=== PATIENT | male | born 1955 | race Caucasian/White ===

== ENCOUNTER 2018-03-08 21:11 | Inpatient (IN) ==
[2018-03-08] MEDS ORDERED: Enoxaparin Inj 60 MG/0.6 ML Syringe SQ ONE (21:31)
--- NOTE | 2018-03-08 21:36 | ED ---
HPI General Chief Complaint: Arrhythmia / Palpitations Stated Complaint: Irregular heartbeat Time Seen by Provider: 03/08/18 21:30 Source: patient Mode of arrival: ambulatory Limitations: no limitations History of Present Illness MD complaint: Reports "heart racing", palpitations and irregular heart beat Duration: intermittent Context: Reports occurred during rest Associated symptoms: Reports denies other symptoms Related Data Home Medications Medication Instructions Recorded Confirmed No Known Home Medications 03/08/18 03/08/18 Allergies Allergy/AdvReac Type Severity Reaction Status Date / Time Tetanus Vaccines and Toxoid Allergy unknown Verified 03/08/18 21:25 Review of Systems ROS: all other systems reviewed are negative PMFSH History History Provided By: Patient Medical History Medical History Patient denies medical problems (Acute) Surgical History Surgical History No history of previous surgery (Acute) Social History Social History Substance History: No History of Abuse Second Hand Smoke Exposure: No Smoking Status: Never smoker How Often Do You Have a Drink Containing Alcohol: 4 or more times a week Recent Travel in [place] within the Last 8 Weeks: No Recent Out of Country Travel within the Last 8 Weeks: No Immunization History Tetanus Immunization: >5 Years Exam Narrative Exam Narrative: GENERAL: Elderly male in no acute distress SKIN: Warm and dry. HEAD: Atraumatic. Normocephalic. EYES: Pupils equal and round. No scleral icterus. No injection or drainage. ENT: No nasal bleeding or discharge. Mucous membranes pink and moist. NECK: Trachea midline. No JVD. CARDIOVASCULAR: Tachycardic rate and irregularly irregular rhythm RESPIRATORY: No accessory muscle use. Clear to auscultation. Breath sounds equal bilaterally. GASTROINTESTINAL: Abdomen soft, non-tender, nondistended. No rebound or guarding MUSCULOSKELETAL: Extremities without clubbing, cyanosis, or edema. No obvious deformities. NEUROLOGICAL: Awake and alert. No obvious cranial nerve deficits. Motor grossly within normal limits. Five out of 5 muscle strength in the arms and legs. Normal speech. PSYCHIATRIC: Appropriate mood and affect; insight and judgment normal. Course Initial Documented Vital Signs Temperature 97.5 F L 03/08/18 21:13 Pulse Rate 101 H 03/08/18 21:13 Respiratory Rate 20 03/08/18 21:13 Blood Pressure 168/66 H 03/08/18 21:13 Pulse Oximetry 97 03/08/18 21:13 Last Documented Vital Signs Temperature 97.5 F L 03/08/18 21:13 Pulse Rate 101 H 03/08/18 21:13 Respiratory Rate 20 03/08/18 21:13 Blood Pressure 168/66 H 03/08/18 21:13 Pulse Oximetry 97 03/08/18 21:13 Medical Decision Making MDM Narrative Medical decision making narrative: No leukocytosis, no anemia, normal platelet count, no left shift Coagulation profile is within normal limits First set of cardiac enzymes negative All electrolytes within normal limits Normal kidney liver and pancreatic functions. Chest x-ray shows by apical pleural and parenchymal scarring with upward hilar retraction. Medical Screen Exam Complete: Yes Emergency Medical Condition: Yes Lab Data Result diagrams: 03/08/18 21:30 03/08/18 21:30 Lab Results 03/08/18 03/08/18 03/08/18 Range/Units 21:30 21:30 21:30 CBC w Diff Auto diff final WBC 4.3 (4.0-11.0) th/mm3 RBC 4.40 L (4.50-5.90) mil/mm3 Hgb 14.8 (13.0-17.0) gm/dL Hct 42.8 (39.0-51.0) % MCV 97.4 (80.0-100.0) fL MCH 33.6 (27.0-34.0) pg MCHC 34.5 (32.0-36.0) % RDW 11.7 (11.6-17.2) % Plt Count 231 (150-450) th/mm3 MPV 7.8 (7.0-11.0) fL Neut % (Auto) 47.2 (16.0-70.0) % Lymph % (Auto) 38.4 (9.0-44.0) % Pierce % (Auto) 7.4 (0.0-8.0) % Eos % (Auto) 4.6 H (0.0-4.0) % Baso % (Auto) 2.4 H (0.0-2.0) % Neut # (Auto) 2.0 (1.8-7.7) th/mm3 Lymph # (Auto) 1.7 (1.0-4.8) th/mm3 Pierce # (Auto) 0.3 (0.0-0.9) th/mm3 Eos # (Auto) 0.2 (0.0-0.4) th/mm3 Baso # (Auto) 0.1 (0.0-0.2) th/mm3 WBC Differential . Differential Comment . PT 10.7 (9.8-11.6) sec INR 1.1 Ratio APTT 24.4 (24.3-30.1) sec Sodium 141 (136-145) meq/L Potassium 3.8 (3.5-5.1) meq/L Chloride 106 (98-107) meq/L Carbon Dioxide 28.2 (21.0-32.0) meq/L Anion Gap 7 (5-15) meq/L BUN 19 H (7-18) mg/dL Creatinine 0.91 (0.60-1.30) mg/dL Estimated GFR 84 L (>89) mL/min Random Glucose 92 (74-106) mg/dL Calcium 8.9 (8.5-10.1) mg/dL Total Bilirubin 0.5 (0.2-1.0) mg/dL AST 26 (15-37) U/L ALT 28 (12-78) U/L Alkaline Phosphatase 61 (45-117) U/L Total Creatine Kinase 148 (39-308) U/L Troponin I Less than 0.02 L (0.02-0.05) ng/mL Total Protein 7.6 (6.4-8.2) g/dL Albumin 3.8 (3.4-5.0) g/dL Imaging Data Attestation: I personally reviewed and interpreted this imaging study as follows : ECG Data EKG Prior to Arrival: No Attestation: I personally reviewed and interpreted this ECG as follows: Prior ECG tracings: not available for review Interpretation: EKG shows tachycardia, rhythm of atrial fibrillation with RVR at 140, no evidence of any acute ST elevation IL pattern noted. However the patient does show relatively diffuse minimal ST depressions throughout all leads except for V1 V2 1 2 and aVL Discharge Plan Discharge Disposition Patient Disposition: 30 Still Patient Discharge Condition Condition: Stable Discharge Details Diagnosis: Atrial fibrillation, new onset Physicians Team ED Provider: Mychal Montoya Primary Care Provider: Erica Gutierrez Rxs /Orders / Referrals /Forms Prescriptions: No Action No Known Home Medications RF: 0 Status ED Status: With Doctor
[2018-03-08 21:46] LABS: Baso # (Auto) 0.1 th/mm3 (0.0-0.2); Baso % (Auto) 2.4 % (0.0-2.0); Eos # (Auto) 0.2 th/mm3 (0.0-0.4); Eos % (Auto) 4.6 % (0.0-4.0); Hematocrit 42.8 % (39.0-51.0); Hemoglobin 14.8 gm/dL (13.0-17.0); Lymph # (Auto) 1.7 th/mm3 (1.0-4.8); Lymph % (Auto) 38.4 % (9.0-44.0); Mean Corpuscular HGB Conc 34.5 % (32.0-36.0); Mean Corpuscular Hemoglobin 33.6 pg (27.0-34.0); Mean Corpuscular Volume 97.4 fL (80.0-100.0); Mean Platelet Volume 7.8 fL (7.0-11.0); Mono # (Auto) 0.3 th/mm3 (0.0-0.9); Mono % (Auto) 7.4 % (0.0-8.0); Neut % (Auto) 47.2 % (16.0-70.0); Platelet Count 231 th/mm3 (150-450); Red Cell Distribution Width 11.7 % (11.6-17.2); White Blood Count 4.3 th/mm3 (4.0-11.0)
[2018-03-08 21:51] LABS: Chloride 106 meq/L (98-107); Potassium 3.8 meq/L (3.5-5.1); Sodium 141 meq/L (136-145)
[2018-03-08 21:54] LABS: Calcium 8.9 mg/dL (8.5-10.1)
[2018-03-08 21:55] LABS: Albumin 3.8 g/dL (3.4-5.0); Anion Gap 7 meq/L (5-15); Blood Urea Nitrogen 19 mg/dL (7-18); Carbon Dioxide 28.2 meq/L (21.0-32.0); Glucose,Random 92 mg/dL (74-106)
[2018-03-08 21:57] LABS: Activated Partial Thrombo Time 24.4 sec (24.3-30.1); INR 1.1 Ratio; Prothrombin Time 10.7 sec (9.8-11.6)
[2018-03-08 21:58] LABS: Alanine Aminotransferase 28 U/L (12-78); Aspartate Aminotransferase 26 U/L (15-37); Glomerular Filtration Rate 84 mL/min (>89)
[2018-03-08 22:00] LABS: Total Protein 7.6 g/dL (6.4-8.2)
[2018-03-08 22:01] LABS: Alkaline Phosphatase 61 U/L (45-117); Creatine Kinase 148 U/L (39-308)
--- NOTE | 2018-03-08 22:08 | XR ---
EXAM DATE: 03/08/2018 9:31 PM EDT AGE/SEX: 63 years / Male INDICATIONS: Chest pain and elevated heart rate. CLINICAL DATA: This is the patient's initial encounter. Patient reports that signs and symptoms have been present for 2 days and indicates a pain score of 4/10. MEDICAL/SURGICAL HISTORY: None. None. COMPARISON: No prior exams available for comparison. FINDINGS: There is biapical parenchymal and pleural scarring with upward hilar retraction and reticulonodular o pacities. No prior chest radiograph for comparison. No effusion. No pneumothorax. Heart size normal. CONCLUSION: Biapical pleural and parenchymal scarring with upward hilar retraction. Electronically signed by: Bruce Schultz MD 03/08/2018 10:07 PM EDT
[2018-03-08 22:13] LABS: Creatine Kinase MB 1.8 ng/mL (0.5-3.6)
[2018-03-08] MEDS ORDERED: Acetaminophen 325 MG Tablet PO PRN (22:38)
[2018-03-08] MEDS ORDERED: Temazepam 15 MG Capsule PO PRN (22:38)
[2018-03-09 04:19] LABS: Chloride 105 meq/L (98-107); Sodium 140 meq/L (136-145)
[2018-03-09 04:22] LABS: Albumin 3.4 g/dL (3.4-5.0); Anion Gap 6 meq/L (5-15); Blood Urea Nitrogen 18 mg/dL (7-18); Calcium 8.4 mg/dL (8.5-10.1); Carbon Dioxide 29.5 meq/L (21.0-32.0); Glucose,Random 88 mg/dL (74-106)
[2018-03-09 04:25] LABS: Alanine Aminotransferase 26 U/L (12-78); Aspartate Aminotransferase 21 U/L (15-37); Glomerular Filtration Rate 86 mL/min (>89)
[2018-03-09 04:27] LABS: Total Protein 6.9 g/dL (6.4-8.2)
[2018-03-09 04:28] LABS: Alkaline Phosphatase 53 U/L (45-117); Creatine Kinase 115 U/L (39-308)
--- NOTE | 2018-03-09 08:29 | P.CONCA ---
History of Present Illness Primary Care Provider: Erica Gutierrez History of Present Illness: 63-year-old male with no significant past medical history who presented for palpitations. The patient states he was sitting down last night watching TV and suddenly developed heart racing, so he went to the ED for evaluation. He denies any chest pain or shortness of breath. He reports that he was out in the sun working all day yesterday. Upon presentation to the ED he was found to be in new onset atrial fibrillation with rapid ventricular response, rate 140- 150s. The patient reports he has a baseline heart rate in the 50s. He was given IV Cardizem 20 mg x1. Around 1:50 AM the patient converted to sinus bradycardia with heart rate around 42 since that time. The patient denies any past history of high blood pressure, diabetes, congestive heart failure, stroke/ TIA. He does report having a lot of daytime sleepiness and yawning. He states his mother was diagnosed with atrial fibrillation at age 90 after TIA. He reports that he stays active playing tennis and soccer. Review of Systems All other systems reviewed negative except as stated in HPI PMFSH - History History Provided By: Patient - Medical / Surgical Hx Neg / Unobtainable Medical Problems Denied: Yes - Medical History Medical History: Medical History (Last Reviewed 03/08/18 @ 21:34 by Mychal Montoya) Patient denies medical problems - Surgical History Surgical History: Surgical History (Last Reviewed 03/08/18 @ 21:34 by Mychal Montoya) No history of previous surgery - Tobacco History Second Hand Smoke Exposure: No Smoking Status: Never smoker - Alcohol History How Often Do You Have a Drink Containing Alcohol: 4 or more times a week - Substance Use History Substance History: No History of Abuse - Travel History Recent Travel in the [place] Within the Last 8 Weeks: No Recent Travel Out of the Country Within the Last 8 Weeks: No - Immunization History Tetanus Immunization: >5 Years Hx Influenza Vaccine This Season: No Medications and Allergies Active Medications: Active Medications Acetaminophen (Tylenol) 650 mg PO Q4H PRN PRN Reason: Temp > 100.4 Enoxaparin Sodium (Lovenox Inj) 70 mg SQ Q12HR DENNISE Lactulose (Lactulose Liq) 30 ml PO DAILY PRN PRN Reason: SEVERE CONSITIPATION Ondansetron HCl (Zofran Inj) 4 mg IV.PUSH Q6H PRN PRN Reason: NAUSEA OR VOMITING Sodium Chloride (Ns Flush) 2 ml IV.FLUSH UNSCH PRN PRN Reason: FLUSH AFTER USING IV ACCESS Temazepam (Restoril) 15 mg PO HS PRN PRN Reason: INSOMNIA Allergies Allergy/AdvReac Type Severity Reaction Status Date / Time Tetanus Vaccines and Toxoid Allergy unknown Verified 03/08/18 21:25 Home Medications Medication Instructions Recorded Confirmed Type No Known Home Medications 03/08/18 03/08/18 History Exam Vital signs: Vital Signs 03/08/18 21:13 03/08/18 21:31 03/08/18 22:30 Temperature 97.5 F L Pulse Rate 101 H 145 H 74 Respiratory Rate 20 16 18 Blood Pressure 168/66 H 130/75 121/71 Pulse Oximetry 97 100 03/08/18 22:54 03/08/18 23:54 03/09/18 00:11 Temperature Pulse Rate 75 88 Respiratory Rate 20 16 Blood Pressure 122/74 133/74 Pulse Oximetry 100 98 03/09/18 04:03 Temperature Pulse Rate 48 L Respiratory Rate 41 H Blood Pressure 119/68 Pulse Oximetry Intake & Output 03/08/18 03/09/18 03/09/18 18:59 06:59 18:59 Intake Total 0 / 0 Output Total 0 / 0 Balance 0 / 0 Weight 147 lb 11.355 oz Intake: Oral 0 / 0 Output: Urine 0 / 0 Other: Date of Last Bowel Movement 03/08/18 Weight On Admission 147 lb 11.355 oz Narrative: GENERAL: Well-developed well-nourished. In no acute distress. NECK: No carotid bruits. No JVD. CARDIOVASCULAR: Bradycardic rate and regular rhythm. No murmur appreciated. RESPIRATORY: No accessory muscle use. Clear to auscultation. Breath sounds equal bilaterally. MUSCULOSKELETAL: No clubbing or cyanosis. No edema. NEUROLOGICAL: Awake and alert. Normal speech. Results 03/08/18 21:30 03/09/18 04:00 Cardiac Enzymes 03/08/18 03/08/18 03/09/18 Range/Units 21:30 21:30 04:00 AST 26 21 (15-37) U/L CK-MB (CK-2) 1.8 (0.5-3.6) ng/mL Troponin I Less than 0.02 L (0.02-0.05) ng/mL B-Natriuretic Peptide 98 (0-100) pg/mL 03/09/18 Range/Units 04:00 AST (15-37) U/L CK-MB (CK-2) (0.5-3.6) ng/mL Troponin I Less than 0.02 L (0.02-0.05) ng/mL B-Natriuretic Peptide (0-100) pg/mL Coagulation 03/08/18 03/08/18 Range/Units 21:30 21:30 PT 10.7 (9.8-11.6) sec APTT 24.4 (24.3-30.1) sec B-Natriuretic Peptide 98 (0-100) pg/mL CBC 03/08/18 Range/Units 21:30 WBC 4.3 (4.0-11.0) th/mm3 RBC 4.40 L (4.50-5.90) mil/mm3 Hgb 14.8 (13.0-17.0) gm/dL Hct 42.8 (39.0-51.0) % Plt Count 231 (150-450) th/mm3 Neut # (Auto) 2.0 (1.8-7.7) th/mm3 Lymph # (Auto) 1.7 (1.0-4.8) th/mm3 Grundy # (Auto) 0.3 (0.0-0.9) th/mm3 Eos # (Auto) 0.2 (0.0-0.4) th/mm3 Baso # (Auto) 0.1 (0.0-0.2) th/mm3 Comprehensive Metabolic Panel 03/08/18 03/09/18 Range/Units 21:30 04:00 Sodium 141 140 (136-145) meq/L Potassium 3.8 4.0 (3.5-5.1) meq/L Chloride 106 105 (98-107) meq/L Carbon Dioxide 28.2 29.5 (21.0-32.0) meq/L BUN 19 H 18 (7-18) mg/dL Creatinine 0.91 0.89 (0.60-1.30) mg/dL Calcium 8.9 8.4 L (8.5-10.1) mg/dL AST 26 21 (15-37) U/L ALT 28 26 (12-78) U/L Alkaline Phosphatase 61 53 (45-117) U/L Total Protein 7.6 6.9 D (6.4-8.2) g/dL Albumin 3.8 3.4 (3.4-5.0) g/dL Intake and Output 03/08/18 03/09/18 03/09/18 22:59 06:59 14:59 Intake Total 0 / 0 Output Total 0 / 0 Balance 0 / 0 Intake: Oral 0 / 0 Output: Urine 0 / 0 Other: Date of Last Bowel Movement 03/08/18 Weight 149 lb 14.629 oz 147 lb 11.355 oz Weight On Admission 147 lb 11.355 oz - Imaging and Cardiology Imaging: Impressions Chest X-Ray 03/08/18 21:31 CONCLUSION: Biapical pleural and parenchymal scarring with upward hilar retraction. Assessment and Plan - Plan 63-year-old male with no significant past medical history who presented for palpitations New onset atrial fibrillation with RVR: Converted to sinus bradycardia after IV Cardizem x1. Resting bradycardia at baseline, no options at this time for pharmacologic rate/rhythm control. Could consider EP referral as outpatient for ablation or pacemaker. Echocardiogram performed this morning, results pending. Consider outpatient sleep study to rule out sleep apnea as a cause. Encourage good hydration. Chadsvasc 0, no indication for anticoagulation at this time. The patient can be discharged home for close outpatient follow-up with us within the next week. Discussed Condition With: Patient, RN, Dr. Bernabe
[2018-03-09] MEDS ORDERED: Enoxaparin Inj 80 MG/0.8 ML Syringe SQ SCH (09:00)
--- NOTE | 2018-03-09 10:29 | P.HP ---
History of Present Illness Service: Medicine Primary Care Physician: Erica Gutierrez History of Present Illness: 63 y/o male states yesterday after busy day at work outdoors in the heat he felt palpitations which prompted him to come to the Er. He states it had been a particularly hot sweaty day for him . He drank maybe 3 1/2 liters of water, no soda or gatorade. At home had 2 beers with dinner and while watching tv suddenly felt his heart beating quickly when he put his hand on his chest. No chest pain , no sob. no lightheadness. In the ER he was found to be in atrial fibrillation with rvr. He was given 20 of iv cardizem (his heart rate was in the 140's) and his rate dropped to the 70's. He was given no further cardizem and on transfer to the floor her had converted to sinus rhythm however during the night his heart rate dropped to the 30's, (per nursing he was not sleeping at the time) but his blood pressure was maintained. He is physically active at work and plays tennis and soccer, regularly. Historically his heart rate is low in the 50s and 60's and his blood pressure is in the 1 teens systolic. - Diagnosis (1) Atrial fibrillation, new onset Inpatient Certification: I certify that the inpatient services were ordered in accordance with Medicare regulations governing the order. This includes certification that hospital inpatient services are reasonable and necessary and in the case of services not specified as inpatient-only under 42 CFR 419.22(n), that they are appropriately provided as inpatient services in accordance to with the 2-midnight benchmark under 43 CFR 412.3(e) Estimated Total Length of Stay (Days): 2 Plans for Post Hospital Care: Not yet determined Review of Systems All other systems reviewed negative except as stated in HPI PMFSH - History History Provided By: Patient, Medical Record - Medical / Surgical Hx Neg / Unobtainable Medical Problems Denied: Yes - Medical History Medical History: Medical History (Last Reviewed 03/09/18 @ 10:19 by Anju Torres MD) Patient denies medical problems - Surgical History Surgical History: Surgical History (Last Reviewed 03/09/18 @ 10:19 by Anju Torres MD) No history of previous surgery - Family History Family History: Family History (Last Updated 03/09/18 @ 10:31 by Anju Torres MD) Other Atrial fibrillation Pancreatic cancer - Social History I have reviewed the patient's Social History: Yes - Tobacco History Second Hand Smoke Exposure: No Smoking Status: Former smoker - Alcohol History How Often Do You Have a Drink Containing Alcohol: 4 or more times a week - Substance Use History Substance History: No History of Abuse - Travel History Recent Travel in the [place] Within the Last 8 Weeks: No Recent Travel Out of the Country Within the Last 8 Weeks: No - Immunization History Tetanus Immunization: >5 Years Hx Influenza Vaccine This Season: No Medications and Allergies Active Medications: Active Medications Acetaminophen (Tylenol) 650 mg PO Q4H PRN PRN Reason: Temp > 100.4 Lactulose (Lactulose Liq) 30 ml PO DAILY PRN PRN Reason: SEVERE CONSITIPATION Ondansetron HCl (Zofran Inj) 4 mg IV.PUSH Q6H PRN PRN Reason: NAUSEA OR VOMITING Sodium Chloride (Ns Flush) 2 ml IV.FLUSH UNSCH PRN PRN Reason: FLUSH AFTER USING IV ACCESS Temazepam (Restoril) 15 mg PO HS PRN PRN Reason: INSOMNIA Allergies Allergy/AdvReac Type Severity Reaction Status Date / Time Tetanus Vaccines and Toxoid Allergy unknown Verified 03/08/18 21:25 Home Medications Medication Instructions Recorded Confirmed Type No Known Home Medications 03/08/18 03/08/18 History Exam Vital signs: Vital Signs 03/08/18 21:13 03/08/18 21:31 03/08/18 22:30 Temperature 97.5 F L Pulse Rate 101 H 145 H 74 Respiratory Rate 20 16 18 Blood Pressure 168/66 H 130/75 121/71 Pulse Oximetry 97 100 03/08/18 22:54 03/08/18 23:54 03/09/18 00:11 Temperature Pulse Rate 75 88 Respiratory Rate 20 16 Blood Pressure 122/74 133/74 Pulse Oximetry 100 98 03/09/18 04:03 03/09/18 08:00 Temperature 97.5 F L Pulse Rate 48 L 42 L Respiratory Rate 41 H 18 Blood Pressure 119/68 98/51 L Pulse Oximetry 98 Intake & Output 03/08/18 03/09/18 03/09/18 18:59 06:59 18:59 Intake Total 0 / 0 Output Total 0 / 0 580 / 580 Balance 0 / 0 -580 / -580 Weight 67 kg Intake: Oral 0 / 0 Output: Urine 0 / 0 580 / 580 Other: Date of Last Bowel Movement 03/08/18 Weight On Admission 67 kg - Constitutional no acute distress - Routine HEENT Exam Head: Present: normocephalic, atraumatic Eye: Present: EOMI ENT: Present: mucous membranes moist - Routine Neck Exam Present: supple, full ROM - Routine Respiratory Exam Present: CTA bilaterally - Routine Cardiovascular Exam Present: RRR, bradycardia - Routine Abdominal Exam Present: soft, normoactive bowel sounds - Routine Extremities Exam Present: full ROM - Routine Skin Exam Present: intact - Routine Neurological Exam Present: alert, oriented X3 - Routine Psychiatric Exam Present: normal affect, normal thought process Results - Labs CBC & Chem 7: 03/08/18 21:30 03/09/18 04:00 Labs: Laboratory Results - last 24 hr 03/08/18 03/08/18 03/08/18 21:30 21:30 21:30 CBC w Diff Auto diff final WBC 4.3 RBC 4.40 L Hgb 14.8 Hct 42.8 MCV 97.4 MCH 33.6 MCHC 34.5 RDW 11.7 Plt Count 231 MPV 7.8 Neut % (Auto) 47.2 Lymph % (Auto) 38.4 Clark % (Auto) 7.4 Eos % (Auto) 4.6 H Baso % (Auto) 2.4 H Neut # (Auto) 2.0 Lymph # (Auto) 1.7 Clark # (Auto) 0.3 Eos # (Auto) 0.2 Baso # (Auto) 0.1 WBC Differential . Differential Comment . PT 10.7 INR 1.1 APTT 24.4 Sodium 141 Potassium 3.8 Chloride 106 Carbon Dioxide 28.2 Anion Gap 7 BUN 19 H Creatinine 0.91 Estimated GFR 84 L Random Glucose 92 Calcium 8.9 Total Bilirubin 0.5 AST 26 ALT 28 Alkaline Phosphatase 61 Total Creatine Kinase 148 CK-MB (CK-2) 1.8 Troponin I Less than 0.02 L B-Natriuretic Peptide Total Protein 7.6 Albumin 3.8 TSH 3.360 03/08/18 03/09/18 03/09/18 21:30 04:00 04:00 CBC w Diff WBC RBC Hgb Hct MCV MCH MCHC RDW Plt Count MPV Neut % (Auto) Lymph % (Auto) Clark % (Auto) Eos % (Auto) Baso % (Auto) Neut # (Auto) Lymph # (Auto) Clark # (Auto) Eos # (Auto) Baso # (Auto) WBC Differential Differential Comment PT INR APTT Sodium 140 Potassium 4.0 Chloride 105 Carbon Dioxide 29.5 Anion Gap 6 BUN 18 Creatinine 0.89 Estimated GFR 86 L Random Glucose 88 Calcium 8.4 L Total Bilirubin 0.6 AST 21 ALT 26 Alkaline Phosphatase 53 Total Creatine Kinase 115 CK-MB (CK-2) Troponin I Less than 0.02 L B-Natriuretic Peptide 98 Total Protein 6.9 D Albumin 3.4 TSH - Imaging Impressions Chest X-Ray 03/08/18 21:31 CONCLUSION: Biapical pleural and parenchymal scarring with upward hilar retraction. Caprini VTE Risk Assessment Caprini VTE Risk Assessment: No/Low Risk (score <= 1) Caprini Risk Assessment Model: Point Value = 1 Point Value = 2 Point Value = 3 Point Value = 5 Age 41-60 Minor surgery BMI > 25 kg/m2 Swollen legs Varicose veins or History of unexplained or recurrent spontaneous Oral contraceptives or hormone replacement Sepsis (< 1 month) Serious lung disease, including pneumonia (< 1 month) Abnormal pulmonary function Acute myocardial infarction Congestive heart failure (< 1 month) History of inflammatory bowel disease Medical patient at bed rest Age 61-74 Arthroscopic surgery Major open surgery (> 45 min) Laparoscopic surgery (> 45 min) Malignancy Confined to bed (> 72 hours) Immobilizing plaster cast Central venous access Age >= 75 History of VTE Family history of VTE Factor V Leiden Prothrombin [id number] Lupus anticoagulant Anticardiolipin antibodies Elevated serum homocysteine Heparin-induced thrombocytopenia Other congenital or acquired thrombophilia Stroke (< 1 month) Elective arthroplasty Hip, pelvis, or leg fracture Acute spinal cord injury (< 1 month) Prophylaxis Regimen: Total Risk Factor Score Risk Level Prophylaxis Regimen 0-1 Low Early ambulation 2 Moderate Order ONE of the following: *Sequential Compression Device (SCD) *Heparin 5000 units SQ BID 3-4 Higher Order ONE of the following medications: *Heparin 5000 units SQ TID *Enoxaparin/Lovenox 40 mg SQ daily (WT < 150 kg, CrCl > 30 mL/min) *Enoxaparin/Lovenox 30 mg SQ daily (WT < 150 kg, CrCl > 10-29 mL/min) *Enoxaparin/Lovenox 30 mg SQ BID (WT < 150 kg, CrCl > 30 mL/min) AND/OR *Sequential Compression Device (SCD) 5 or more Highest Order ONE of the following medications: *Heparin 5000 units SQ TID (Preferred with Epidurals) *Enoxaparin/Lovenox 40 mg SQ daily (WT < 150 kg, CrCl > 30 mL/min) *Enoxaparin/Lovenox 30 mg SQ daily (WT < 150 kg, CrCl > 10-29 mL/min) *Enoxaparin/Lovenox 30 mg SQ BID (WT < 150 kg, CrCl > 30 mL/min) AND *Sequential Compression Device (SCD) Assessment and Plan - Assessment (1) Atrial fibrillation, new onset Code(s): I48.91 - Unspecified atrial fibrillation Status: Acute Plan: patient admitted for atrial fibrillation with rvr , rate controlled with one dose of iv cardizem with subsequent conversion. He has been bradycardic since conversion which appears to be his baseline. He has maintained good blood pressures. Echo was done and is pending. He has been seen by cardiology and they have cleared him for discharge with follow up with them to consider electrophysiology testing. He tells me he has an appt with pcp scheduled for tommorrow. - Plan discharge home with close followup with cardiology and pcp Discussed Condition With: patient
--- NOTE | 2018-03-09 10:56 | P.DS ---
Date of admission: 03/08/18 22:38 Primary care physician: Erica Gutierrez Attending physician on discharge: Anju Torres Anticipated date of discharge: 03/09/18 Brief History from admission: 63 y/o male states yesterday after busy day at work outdoors in the heat he felt palpitations which prompted him to come to the Er. He states it had been a particularly hot sweaty day for him . He drank maybe 3 1/2 liters of water, no soda or gatorade. At home had 2 beers with dinner and while watching tv suddenly felt his heart beating quickly when he put his hand on his chest. No chest pain , no sob. no lightheadness. In the ER he was found to be in atrial fibrillation with rvr. He was given 20 of iv cardizem (his heart rate was in the 140's) and his rate dropped to the 70's. He was given no further cardizem and on transfer to the floor her had converted to sinus rhythm however during the night his heart rate dropped to the 30's, (per nursing he was not sleeping at the time) but his blood pressure was maintained. He is physically active at work and plays tennis and soccer, regularly. Historically his heart rate is low in the 50s and 60's and his blood pressure is in the 1 teens systolic. DS: Diagnosis - Discharge Diagnosis (1) Atrial fibrillation, new onset Status: Resolved DS: Summary Hospital Course: Patient presented to ER for palpitations was in atrial fibrillation with rvr, rate controlled with one dose of cardizem IV, Subsequently converted on the floor. He has remained bradycardic with good blood pressures which appears to be his baseline, Seen by cardiology who based on risks are not recommending anticoagualtion. His echo is pending and he will follow up with them next week to consider furhter ep studies. Cardiology is not recommending pharmacological treatment at this time. - Time Spent with Patient Total time spent providing and/or coordinating discharge services: Less than 30 minutes - Quality: VTE Deep Vein Thrombosis/Pulmonary Embolism Present on Admission: No Exam Vital signs: Vital Signs 03/08/18 21:13 03/08/18 21:31 03/08/18 22:30 Temperature 97.5 F L Pulse Rate 101 H 145 H 74 Respiratory Rate 20 16 18 Blood Pressure 168/66 H 130/75 121/71 Pulse Oximetry 97 100 03/08/18 22:54 03/08/18 23:54 03/09/18 00:11 Temperature Pulse Rate 75 88 Respiratory Rate 20 16 Blood Pressure 122/74 133/74 Pulse Oximetry 100 98 03/09/18 04:03 03/09/18 08:00 Temperature 97.5 F L Pulse Rate 48 L 42 L Respiratory Rate 41 H 18 Blood Pressure 119/68 98/51 L Pulse Oximetry 98 Intake & Output 03/08/18 03/09/18 03/09/18 18:59 06:59 18:59 Intake Total 0 / 0 Output Total 0 / 0 580 / 580 Balance 0 / 0 -580 / -580 Weight 67 kg Intake: Oral 0 / 0 Output: Urine 0 / 0 580 / 580 Other: Date of Last Bowel Movement 03/08/18 Weight On Admission 67 kg - Constitutional no acute distress - Routine HEENT Exam Head: Present: normocephalic ENT: Present: mucous membranes moist - Routine Neck Exam Present: supple - Routine Respiratory Exam Present: accessory muscle use - Routine Cardiovascular Exam Present: bradycardia - Routine Abdominal Exam Present: soft, normoactive bowel sounds - Routine Extremities Exam Present: full ROM - Routine Skin Exam Present: intact - Routine Neurological Exam Present: alert, oriented X3 Results Procedures completed during hospitalization: none Labs on day of discharge: Labs from last 24 hours 03/09/18 03/09/18 03/08/18 04:00 04:00 21:30 CBC w Diff WBC RBC Hgb Hct MCV MCH MCHC RDW Plt Count MPV Neut % (Auto) Lymph % (Auto) [place] % (Auto) Eos % (Auto) Baso % (Auto) Neut # (Auto) Lymph # (Auto) [place] # (Auto) Eos # (Auto) Baso # (Auto) WBC Differential Differential Comment PT INR APTT Sodium 140 Potassium 4.0 Chloride 105 Carbon Dioxide 29.5 Anion Gap 6 BUN 18 Creatinine 0.89 Estimated GFR 86 L Random Glucose 88 Calcium 8.4 L Total Bilirubin 0.6 AST 21 ALT 26 Alkaline Phosphatase 53 Total Creatine Kinase 115 CK-MB (CK-2) Troponin I Less than 0.02 L B-Natriuretic Peptide 98 Total Protein 6.9 D Albumin 3.4 TSH 03/08/18 03/08/18 03/08/18 21:30 21:30 21:30 CBC w Diff Auto diff final WBC 4.3 RBC 4.40 L Hgb 14.8 Hct 42.8 MCV 97.4 MCH 33.6 MCHC 34.5 RDW 11.7 Plt Count 231 MPV 7.8 Neut % (Auto) 47.2 Lymph % (Auto) 38.4 [place] % (Auto) 7.4 Eos % (Auto) 4.6 H Baso % (Auto) 2.4 H Neut # (Auto) 2.0 Lymph # (Auto) 1.7 [place] # (Auto) 0.3 Eos # (Auto) 0.2 Baso # (Auto) 0.1 WBC Differential . Differential Comment . PT 10.7 INR 1.1 APTT 24.4 Sodium 141 Potassium 3.8 Chloride 106 Carbon Dioxide 28.2 Anion Gap 7 BUN 19 H Creatinine 0.91 Estimated GFR 84 L Random Glucose 92 Calcium 8.9 Total Bilirubin 0.5 AST 26 ALT 28 Alkaline Phosphatase 61 Total Creatine Kinase 148 CK-MB (CK-2) 1.8 Troponin I Less than 0.02 L B-Natriuretic Peptide Total Protein 7.6 Albumin 3.8 TSH 3.360 - Impressions ITS Impressions Chest X-Ray 03/08/18 21:31 CONCLUSION: Biapical pleural and parenchymal scarring with upward hilar retraction. Discharge Plan - Discharge Disposition Patient Disposition: 01 Discharge Home - Discharge Condition Condition: Stable - Discharge Order Discharge Orders: Discharge Order (Routine); Ordered 03/09/18 Ordered By: Anju Torres - Physicians Team Primary Care Provider: Erica Gutierrez Attending Provider: Anju Torres Other Providers: Benito Bernabe DO
--- NOTE | 2018-03-09 17:07 | ECHRPT ---
Indication: ATRIAL FIB CONCLUSIONS The left ventricular systolic function is normal with an estimated ejection fraction in the range of 60-65%. Normal left ventricular size. Wall thickness is normal. No regional wall motion abnormalities are present. BP: / HR: Rhythm: MEASUREMENTS (Male / Female) Normal Values Technical Quality: 2D ECHO LV Diastolic Diameter PLAX 4.3 cm 4.2 - 5.9 / 3.9 - 5.3 cm LV Systolic Diameter PLAX 2.8 cm IVS Diastolic Thickness 0.8 cm 0.6 - 1.0 / 0.6 - 0.9 cm LVPW Diastolic Thickness 0.8 cm 0.6 - 1.0 / 0.6 - 0.9 cm LV Relative Wall Thickness 0.4 LVOT Diameter 2.2 cm LA Systolic Diameter LX 2.5 cm 3.0 - 4.0 / 2.7 - 3.8 cm LV Ejection Fraction MOD 4C 67.7 % LV Ejection Fraction 4C AL 68.6 % M-MODE Aortic Root Diameter MM 2.2 cm AV Cusp Separation MM 2.3 cm DOPPLER AV Peak Velocity 113.0 cm/s AV Peak Gradient 5.1 mmHg LVOT Peak Velocity 91.3 cm/s LVOT Peak Gradient 3.3 mmHg AV Area Cont Eq pk 3.1 cm MV Area PHT 3.1 cm Mitral E Point Velocity 93.8 cm/s Mitral A Point Velocity 35.0 cm/s Mitral E to A Ratio 2.7 LV E' Lateral Velocity 13.0 cm/s Mitral E to LV E' Lateral Ratio 7.2 LV E' Septal Velocity 6.9 cm/s Mitral E to LV E' Septal Ratio 13.6 PV Peak Velocity 92.3 cm/s PV Peak Gradient 3.4 mmHg FINDINGS LEFT VENTRICLE The left ventricular systolic function is normal with an estimated ejection fraction in the range of 60-65%. Normal left ventricular size. Wall thickness is normal. No regional wall motion abnormalities are present. RIGHT VENTRICLE Normal right ventricular size and systolic function. LEFT ATRIUM The left atrial size is normal. RIGHT ATRIUM The right atrial size is normal. ATRIAL SEPTUM Normal atrial septal thickness without atrial level shunting by limited color doppler interrogation. AORTA The aortic root and proximal ascending aorta are normal in size on limited imaging. MITRAL VALVE Structurally normal mitral valve. No mitral valve stenosis or regurgitation. AORTIC VALVE Trileaflet aortic valve. No aortic valve stenosis or regurgitation. TRICUSPID VALVE Structurally normal tricuspid valve. No tricuspid valve stenosis or regurgitation. PULMONARY VALVE The pulmonary valve is not well visualized. VESSELS The inferior vena cava is normal in size. PERICARDIUM No pericardial effusion. Calista Riley MD, FACC (Electronically Signed) Final Date:09 March 2018 17:06
--- NOTE | 2018-03-10 08:18 | ECG ---
Date Performed: 03/08/2018 Time Performed: 21:22:53 PTAGE: 63 years EKG: ATRIAL FIBRILLATION WITH RAPID VENTRICULAR RESPONSE INDETERMINATE AXIS PROBABLE INFERIOR MY OCARDIAL INFARCTION ABNORMAL ECG Compared to PREVIOUS TRACING Nonspecific ST and T wave abnormalities are now present, atrial fibrill ation is new PREVIOUS TRACIN06/06/1995 10.13 DOCTOR: Malvin Dean Interpretating Date/Time 03/10/2018 08:17:50
--- NOTE | 2018-03-10 08:20 | ECG ---
Date Performed: 03/09/2018 Time Performed: 02:05:53 PTAGE: 63 years EKG: SINUS BRADYCARDIA BORDERLINE ECG Compared to PREVIOUS TRACING sinus bradycardia has replaced atrial fibrillation PREVIOUS TRACIN 22.10 DOCTOR: Malvin Dean Interpretating Date/Time 03/10/2018 08:18:41
--- NOTE | 2018-03-10 08:20 | ECG ---
Date Performed: 03/08/2018 Time Performed: 22:10:26 PTAGE: 63 years EKG: ATRIAL FIBRILLATION ABNORMAL RHYTHM ECG Compared to PREVIOUS TRACING ventricular response to atrial fibrillation has slowed, ST changes have improved PREVIOUS TRACIN03/08/2018 21.22 DOCTOR: Malvin Dean Interpretating Date/Time 03/10/2018 08:18:24
== END 2018-03-09 12:00 | disposition home or self-care (01) ==
LOC: PHEDA 21:11 → PHED 21:11 → PHICU 23:47
PROVIDERS: ADMIT Legal Medicine; ATTEND Legal Medicine